=== PATIENT | male | born 1940 | race Caucasian/White ===

== ENCOUNTER → 2017-01-21 | Day surgery (SDC) | payer OTHER ==
[~2017-01-21] VITALS: Ht 172.7 cm; Wt 84.0 kg
[~2017-01-21] MED LIST: 0.9% Sodium Chloride 1,000 ML IV SCH; ASPI-973 PO; GLBR5T PO; HYDR25TA4 PO; INSU100V28 SUBQ; LEVO125T6 PO; LISI40TA PO; LOVA40TA PO; METF850T2 PO; NO MEDS; Sodium Chloride LOK Flush 10 mL Syringe IV PRN; bp med; fentaNYL-PF 50 mCg/mL 2 mL Inj IVPUSH PRN
[2017-01-21 09:15] VITALS: BP 162/74; PULSE 68; RESP 18; O2SAT 100
[2017-01-21 10:10] VITALS: BP 137/68; PULSE 58; RESP 16; O2SAT 99
[2017-01-21 10:29] VITALS: BP 139/82; PULSE 64; RESP 12; O2SAT 98
[2017-01-21 10:36] VITALS: BP 143/61; PULSE 66; RESP 12; O2SAT 100
--- NOTE | 2017-01-21 11:20 | ENDO ---
[address] [address] ENDOSCOPY PROCEDURE PATIENT: OMAR PÉREZ : 1940 MR#: [id number] ADMIT: 01/21/2017 JOB ID: [id number] DATE: 01/21/2017 TYPE OF OPERATION: Colonoscopy. PREOPERATIVE DIAGNOSIS: Guaiac-positive stools. POSTOP DIAGNOSIS: Poor prep. ANESTHESIA: 1. Fentanyl 100 mcg. 2. Versed 4 mg IV administered. COMPLICATIONS: None. BLOOD LOSS: Minimal. DESCRIPTION OF PROCEDURE: After risks and benefits were explained to the patient, informed consent was obtained. After anesthesia administered, colonoscope was then inserted from the rectum to the ascending colon. Mucosa carefully examined. Prep of the patient was suboptimal and poor. After procedure was done, the scope withdrawn and procedure terminated. FINDINGS: Upon inspection of the anus, no masses, hemorrhoids, ulcers or fissures that were seen. Throughout the entire examination, there was a poor prep with large amounts of liquid stool that was seen throughout the entire region. The scope which reached the ascending colon was then aborted. IMPRESSIONS: Poor prep. RECOMMENDATIONS: Repeat colonoscopy with a two day prep.
== END | disposition home or self-care (01) ==
LOC: END 00:10
PROVIDERS: ATTEND Internal Medicine Gastroenterology
DX: R19.5 Other fecal abnormalities (principal); I10 Essential (primary) hypertension; E11.9 Type 2 diabetes mellitus without complications; Z53.09 Procedure and treatment not carried out because of other contraindication
CPT/HCPCS: 45378; G0500; J2250; J3010; J7030